=== PATIENT | female | born 1945 | race Caucasian/White ===

== ENCOUNTER 2018-06-20 03:05 | Inpatient (IN) | payer OTHER, MEDICARE ==
[2018-06-20 03:19] VITALS: BMI 24.0
[2018-06-20] MEDS ORDERED: SODIUM CHLORIDE 1,000 ML IV STA (03:23)
[2018-06-20] MEDS ORDERED: ACETAMINOPHEN 1000 MG/100 ML VIAL (NON FORMULARY) IVPB ONE (03:23)
[2018-06-20] MEDS ORDERED: ACETAMINOPHEN INJECTION 100 ML IVPB ONE (03:24)
[2018-06-20] MEDS ORDERED: PIPERACILLIN/TAZOB 3.375 GM 3.375 GM in DEXTROSE 5%-WATER - 50 ML IVPB ONE (03:30)
[2018-06-20] MEDS ORDERED: VANCOMYCIN 1,000 MG in DEXTROSE 5%-WATER - 250 ML IVPB ONE (03:30)
--- NOTE | 2018-06-20 03:33 | PDOC ---
History of Present Illness - General History Source: Patient Exam Limitations: No Limitations - History of Present Illness Initial Comments: 06/20/18 03:56 The patient is a 73 year old male, with a significant PMH of dysphagia, acute respiratory infection, dementia, Type 2 diabetes and hypothyroidism who presents to the emergency department with vomiting. According to jail papers, patient vomited 3 times accompanied with shakes and elevated BP of 195/ 94. Per jail paper, patient's oxygen saturation was 77 and o2 was given changing oxygen saturation to 94. As per jail records patient is DNR. The patient denies chest pain, shortness of breath, headache and dizziness. Denies fever,diarrhea and constipation. Denies dysuria, frequency, urgency and hematuria. Allergies: clindamycin, penicillin Past surgical history: Fistula temp colostomy closure, appendectomy, cholecystectomy, orif right ankle Social history: None reported PCP: None reported Documentation prepared by Cathi Aguilar, acting as director global medical affairs for Hi Romero MD. <Cathi Aguilar - Last Filed: 06/20/18 03:56> - General History Source: Patient Exam Limitations: Clinical Condition <Hi Romero - Last Filed: 06/20/18 04:59> - General Chief Complaint: Nausea/Vomiting Stated Complaint: VOMITING Time Seen by Provider: 06/20/18 03:23 Past History <Cathi Aguilar - Last Filed: 06/20/18 03:56> - Past Medical History Anemia: No Asthma: No Cancer: No Cardiac Disorders: No CVA: No COPD: No CHF: No Dementia: No Diabetes: Yes GI Disorders: No Disorders: Yes (kidney stones) HTN: Yes Hypercholesterolemia: No Liver Disease: No Seizures: No Thyroid Disease: Yes (hypothroid) - Surgical History Abdominal Surgery: Yes (fistula temp colostomy,closure) Appendectomy: Yes Cardiac Surgery: No Cholecystectomy: Yes Lung Surgery: No Neurologic Surgery: No Orthopedic Surgery: Yes (orif right ankle) - Immunization History Td Vaccination: No Immunization Up to Date: Yes - Suicide/Smoking/Psychosocial Hx Smoking Status: No Smoking History: Never smoked Have you smoked in the past 12 months: No Number of Cigarettes Smoked Daily: 0 Information on smoking cessation initiated: No Hx Alcohol Use: No Drug/Substance Use Hx: No Substance Use Type: None Hx Substance Use Treatment: No <Hi Romero - Last Filed: 06/20/18 04:59> - Past Medical History Allergies/Adverse Reactions: Allergies Allergy/AdvReac Type Severity Reaction Status Date / Time clindamycin Allergy Severe Rash Verified 06/20/18 03:17 Penicillins Allergy Mild Rash Verified 06/20/18 03:17 Home Medications: Ambulatory Orders Acetaminophen [Tylenol .Regular Strength -] 650 mg PO Q6H PRN 10/08/14 Bacitracin - [Bacitracin Topical Ointment -] 1 applic TP BID 10/08/14 Insulin Regular, Human [Humulin R -] 0 units SQ ACHS 10/08/14 Levothyroxine [Synthroid -] 100 mcg PO DAILY 10/08/14 Lisinopril [Prinivil -] 40 mg PO DAILY 10/08/14 Sitagliptin Phosphate [Januvia] 100 mg PO DAILY 10/08/14 metFORMIN XR [Glucophage Xr -] 750 mg PO BID 10/08/14 Review of Systems - Review of Systems Able to Perform ROS?: Yes Comments:: 06/20/18 03:59 CONSTITUTIONAL: Present:chills Absent: fever, no fatigue EYES: Absent: visual changes ENT: Absent: ear pain, no sore throat CARDIOVASCULAR: Absent: chest pain, no palpitations RESPIRATORY: Absent: cough, no SOB GI: Present: Nausea, vomiting Absent: abdominal pain, no constipation, no diarrhea GENITOURINARY: Absent: dysuria, no frequency, no hematuria MUSKULOSKELETAL: Absent: back pain, no arthralgia, no myalgia SKIN: Absent: rash NEURO: Absent: headache <Cathi Aguilar - Last Filed: 06/20/18 03:56> *Physical Exam - Vital Signs Last Vital Signs Temp Pulse Resp BP Pulse Ox 102.7 F H 105 H 16 126/102 89 L 06/20/18 03:17 06/20/18 03:17 06/20/18 03:17 06/20/18 03:17 06/20/18 03:17 - Physical Exam Comments: 06/20/18 03:58 GENERAL: +Appears confused. Well developed, well nourished. HEENT: Normocephalic, atraumatic. PERRLA, EOMI. No conjunctival pallor. Sclera are non- icteric. Moist mucous membranes. Oropharynx is clear. NECK: Supple. Full ROM. No JVD. Carotid pulses 2+ and symmetric, without bruits. No thyromegaly. No lymphadenopathy. CARDIOVASCULAR: +Tachycardia Regular rate and rhythm. No murmurs, rubs, or gallops. Distal pulses are 2+ and symmetric. PULMONARY: +Mild respiratory distress.+Decreased breath sound bilaterally. + Supraclavicular retraction No wheezing, rales or rhonchi. ABDOMINAL: +Distended. Soft. Non-tender. No rebound or guarding. No organomegaly. Normoactive bowel sounds. MUSCULOSKELETAL Normal range of motion at all joints. No bony deformities or tenderness. No CVA tenderness. EXTREMITIES: No cyanosis. No clubbing. No edema. No calf tenderness. SKIN: Warm and dry. Normal capillary refill. No rashes. No jaundice. NEUROLOGICAL: +No focal deficit PSYCHIATRIC: Cooperative. Good eye contact. Appropriate mood and affect. <Cathi Aguilar - Last Filed: 06/20/18 03:56> - Vital Signs Last Vital Signs Temp Pulse Resp BP Pulse Ox 102.7 F H 105 H 16 126/102 89 L 06/20/18 03:17 06/20/18 03:17 06/20/18 03:17 06/20/18 03:17 06/20/18 03:17 <Hi Romero - Last Filed: 06/20/18 04:59> ED Treatment Course - LABORATORY CBC & Chemistry Diagram: 06/20/18 03:36 06/20/18 03:36 - ADDITIONAL ORDERS Additional order review: Laboratory Results 06/20/18 03:36 VBG pH 7.45 H POC VBG pCO2 31.2 L POC VBG pO2 53.8 H Mixed VBG HCO3 21.6 06/20/18 03:36 RBC 5.02 MCV 86.6 MCHC 34.2 RDW 13.8 MPV 8.6 Neutrophils % 96.3 H D Lymphocytes % 2.1 L D Monocytes % 1.5 L Eosinophils % 0.0 D Basophils % 0.1 - Medications Given in the ED: ED Medications Discontinued Medications Generic Name Dose Route Start Last Admin Trade Name Freq PRN Reason Stop Dose Admin Acetaminophen 1,000 mg 06/20/18 03:23 06/20/18 03:33 Ofirmev Injection - IVPB 06/20/18 03:24 1,000 mg ONCE ONE Administration <Cathi Aguilar - Last Filed: 06/20/18 03:56> - LABORATORY CBC & Chemistry Diagram: 06/20/18 03:36 06/20/18 03:36 - RADIOLOGY Radiology Studies Ordered: Category Date Time Status CHEST X-RAY PORTABLE* [RAD] Stat Radiology 06/20/18 03:22 Ordered <Hi Romero - Last Filed: 06/20/18 04:59> Medical Decision Making - Medical Decision Making 06/20/18 04:58 Dr. Romero: The scribe's documentation has been prepared under my direction and personally reviewed by me in its entirery. I confirm that the note above accurately reflects all work, treatment, procedures, and medical decision making performed by me. Pt is DNR. Pt found to have a UTI. Will admit <Hi Romero - Last Filed: 06/20/18 04:59> *DC/Admit/Observation/Transfer - Attestations Scribe Attestion: 06/20/18 04:01 Documentation prepared by Cathi Aguilar, acting as director global medical affairs for Hi Romero MD. <Cathi Aguilar - Last Filed: 06/20/18 03:56> - Discharge Dispostion Decision to Admit order: Yes <Hi Romero - Last Filed: 06/20/18 04:59> Diagnosis at time of Disposition: Sepsis, UTI (lower urinary tract infection) - Discharge Dispostion Condition at time of disposition: Guarded
[2018-06-20] MEDS ORDERED: PIPERACILLIN/TAZOB 3.375 GM 3.375 GM/50 ML BAG IVPB ONE (03:43)
[2018-06-20 03:52] LABS: BASO % 0.1 % (0-2.0); HEMATOCRIT 43.5 % (32.4-45.2); HEMOGLOBIN 14.9 GM/dL (10.7-15.3); LYMPH % 2.1 % (8-40); MCH 29.6 pg (25.7-33.7); MCHC 34.2 g/dl (32.0-36.0); MEAN CELL VOLUME 86.6 fl (80-96); MEAN PLT VOLUME 8.6 fl (7.5-11.1); MONO % 1.5 % (3.8-10.2); NEUT % 96.3 % (42.8-82.8); PLATELET COUNT 152 K/MM3 (134-434); RBC 5.02 M/mm3 (3.60-5.2); RDW 13.8 % (11.6-15.6); VENOUS PC02 31.2 mmHg (38-52); VENOUS PH 7.45 (7.32-7.42)
[2018-06-20 03:53] LABS: VENOUS PO2 53.8 mmHg (28-48)
[2018-06-20 04:02] LABS: URINE APPEARANCE CLOUDY; URINE BILIRUBIN NEGATIVE (<2.0 mg/dL); URINE COLOR YELLOW; URINE GLUCOSE (UA) 2+ (NEGATIVE); URINE KETONE NEGATIVE (NEGATIVE); URINE NITRITE NEGATIVE (NEGATIVE); URINE UROBILINOGEN NEGATIVE mg/dL (0.2-1.0)
[2018-06-20 04:04] LABS: INR 1.27 (0.83-1.09); PROTHROMBIN TIME (PATIENT) 14.3 SEC (9.7-13.0)
[2018-06-20 04:07] LABS: ACTIVATED PTT 23.7 SECONDS (25.2-36.5)
[2018-06-20] MEDS ORDERED: VANCOMYCIN 1 GRAM (PRE-DOCKED) 1,000 MG/250 ML BAG IVPB ONE (04:08)
[2018-06-20 04:13] LABS: URINE LEUK ESTERASE 2+ (NEGATIVE); URINE PROTEIN 2+ (NEGATIVE)
[2018-06-20 04:14] LABS: ALBUMIN 2.9 g/dl (3.4-5.0); ANION GAP 13 MMOL/L (8-16); BILIRUBIN,TOTAL 1.2 mg/dL (0.2-1.0); BLOOD UREA NITROGEN 37 mg/dL (7-18); CALCIUM 8.6 mg/dL (8.5-10.1); CHLORIDE 104 mmol/L (98-107); CO2 23 mmol/L (21-32); CREATININE 1.5 mg/dL (0.55-1.02); POTASSIUM 3.9 mmol/L (3.5-5.1); SGOT/AST 29 U/L (15-37); SGPT/ALT 21 U/L (12-78); SODIUM 140 mmol/L (136-145); TOT PROT 6.9 g/dl (6.4-8.2)
[2018-06-20 04:15] LABS: ALK PHOS 93 U/L (45-117)
[2018-06-20 04:16] LABS: GLUCOSE,RANDOM 308 mg/dL (74-106)
[2018-06-20 04:20] LABS: EPI CELLS FEW /HPF (FEW); URINE BACTERIA MANY /hpf (NONE SEEN); URINE MUCUS RARE; YEAST MODERATE
[2018-06-20 04:30] LABS: PLATELET ESTIMATE ADEQUATE
[2018-06-20] MEDS ORDERED: ACETAMINOPHEN 325 MG TABLET (FP) PO PRN (06:00)
[2018-06-20] MEDS ORDERED: SODIUM CHLORIDE 1,000 ML IV SCH (06:00)
--- NOTE | 2018-06-20 06:08 | PN ---
Teaching Attending Note Name of Resident: Lanie Alexis ATTENDING PHYSICIAN STATEMENT I saw and evaluated the patient. I reviewed the resident's note and discussed the case with the resident. I agree with the resident's findings and plan as documented. SUBJECTIVE: Patient is a 73 year old woman, Detention resident with a significant PMH of dysphagia, acute respiratory infection, dementia, Type 2 diabetes and hypothyroidism who presents to the ER with vomiting. According to longterm papers, patient vomited 3 times accompanied with shakes and elevated BP of 195/ 94. Per longterm paper, patient's oxygen saturation was 77 and oxygen was then given and saturation paulino to 94. As per longterm records patient has DNR instructions. The patient is awake, but not answering questions or following commands. It is unclear if this is her baseline. OBJECTIVE: Alert Vital Signs Period Temp Pulse Resp BP Sys/[place] Pulse Ox Last 24 Hr 102.7 F 105 16 126/102 89 HEENT: No Jaundice, eye redness or discharge, PERRLA, Normocephalic, atraumatic. External ears are normal; unable to evaluate her hearing. No nasal discharge. Neck: Supple, nontender. No palpable adenopathy or thyromegaly. No JVD Chest: Good effort. Clear to auscultation and percussion. Heart: Regular. No S3, rub or murmur Abdomen: Not distended, soft, nontender and no HSM. No rebound or guarding. Normoactive bowel sounds. Ext: Peripheral pulses intact. No leg edema. Skin: Warm and dry. No petechiae, rash or ecchymosis. Neuro: Alert. Not answering questions or following commands. Home Medications Medication Instructions Recorded Acetaminophen [Tylenol .Regular 650 mg PO Q6H PRN 10/08/14 Strength -] Bacitracin - [Bacitracin Topical 1 applic TP BID 10/08/14 Ointment -] Insulin Regular, Human [Humulin R 0 units SQ ACHS 10/08/14 -] Levothyroxine [Synthroid -] 100 mcg PO DAILY 10/08/14 Lisinopril [Prinivil -] 40 mg PO DAILY 10/08/14 Sitagliptin Phosphate [Januvia] 100 mg PO DAILY 10/08/14 metFORMIN XR [Glucophage Xr -] 750 mg PO BID 10/08/14 Abnormal Lab Results 06/20/18 06/20/18 06/20/18 03:36 03:36 03:36 Neutrophils % 96.3 H D Lymphocytes % 2.1 L D Lymphocytes % (Manual) 3.0 L Monocytes % 1.5 L Monocytes % (Manual) 3 L PT with INR 14.30 H INR 1.27 H PTT (Actin FS) 23.7 L VBG pH 7.45 H POC VBG pCO2 31.2 L POC VBG pO2 53.8 H BUN Creatinine Random Glucose Lactic Acid Total Bilirubin Albumin Urine Protein Urine Glucose (UA) Urine Blood Ur Leukocyte Esterase 06/20/18 06/20/18 06/20/18 03:36 03:36 03:45 Neutrophils % Lymphocytes % Lymphocytes % (Manual) Monocytes % Monocytes % (Manual) PT with INR INR PTT (Actin FS) VBG pH POC VBG pCO2 POC VBG pO2 BUN 37 H Creatinine 1.5 H Random Glucose 308 H* Lactic Acid 4.0 H* Total Bilirubin 1.2 H Albumin 2.9 L Urine Protein 2+ H Urine Glucose (UA) 2+ H Urine Blood 3+ H Ur Leukocyte Esterase 2+ H ASSESSMENT AND PLAN: 1. Sepsis due to Healthcare-associated UTI and Pneumonia - In addition to evidence of UTI, she also has RML and RLL infiltrates on CXR as per my read. Multiple isolates of E.Coli in her urine in the past was resistant to levofloxacin. She is allergic to penicillin and clindamycin. Will treat her with dose-adjusted Vancomycin, Meropenem and Azithromycin, pending culture results. IV NS and trend lactic acid level. Followup with Detention staff to get a better picture of her baseline mental status. 2. Hypoalbuminemia - Possibly due to combined effects of malnutrition, proteinuria and inflammation associated with comorbid chronic conditions. Will ensure adequate dietary protein intake and also consult embedded software architect. 3. DM - For now, we will hold the home diabetes drugs and implement sliding scale insulin regimen. Provide comprehensive diabetes care with patient teaching and counseling about the importance of euglycemia, eye care and foot care. 4. DIOGO? - Vomiting, osmotic diuresis and poor intake likely led to dehydration. Will avoid nephrotoxic agents such as NSAIDS, aminoglycosides, contrast dyes and certain Alternative medicine products. Deescalate from vancomycin once cultures become available and check trough levels. 5. DVT prophylaxis - Heparin 5000u sq tid. 6. Advance directives - Full code
--- NOTE | 2018-06-20 06:12 | HP ---
CHIEF COMPLAINT:vomiting PCP: HISTORY OF PRESENT ILLNESS: Patient is a 73 year old female with past medical history of dysphagia, HTN, DM , Dementia, Hypothyroidism, and recurrent UTIs was brought in from the shelter by EMS due to vomiting. Patient is awake, but nonverbal, not answering questions and does not follow commands. As per the shelter papers, patient was noted to have 3 episodes of vomiting accompanied by chills. BP at that time was 195/94 and O2 sat was found to be 77% which improved to 94% with oxygen. Patient is DNR. Otherwise, no other symptoms were reported. ER course was notable for: (1)Temp 102.7 HR 105 (2)BUN 37, Cr 1.5, Glucose 308, Lactic acid 4.0 (3)UA- WBC 479, RBC 520, FAINA 2+ Glu 2+ Blood 3+ Leuk est 2+, many bacteria Recent Travel:denies any recent travel PAST MEDICAL HISTORY: Dysphagia HTN DM Dementia Hypothyroidism PAST SURGICAL HISTORY: Fistula temp colostomy closure Appendectomy Cholecystectomy ORIF R ankle Social History: Smoking:nonsmoker Alcohol:non EtOH drinker Drugs: denies illicit drug use Family History: Allergies clindamycin Allergy (Severe, Verified 06/20/18 03:17) Rash Penicillins Allergy (Mild, Verified 06/20/18 03:17) Rash HOME MEDICATIONS: Home Medications Medication Instructions Recorded Acetaminophen [Tylenol .Regular 650 mg PO Q6H PRN 10/08/14 Strength -] Bacitracin - [Bacitracin Topical 1 applic TP BID 10/08/14 Ointment -] Insulin Regular, Human [Humulin R 0 units SQ ACHS 10/08/14 -] Levothyroxine [Synthroid -] 100 mcg PO DAILY 10/08/14 Lisinopril [Prinivil -] 40 mg PO DAILY 10/08/14 Sitagliptin Phosphate [Januvia] 100 mg PO DAILY 10/08/14 metFORMIN XR [Glucophage Xr -] 750 mg PO BID 10/08/14 REVIEW OF SYSTEMS CONSTITUTIONAL: fever, chills Absent: diaphoresis, generalized weakness, malaise, loss of appetite, weight change HEENT: Absent: rhinorrhea, nasal congestion, throat pain, throat swelling, difficulty swallowing, mouth swelling, ear pain, eye pain, visual changes CARDIOVASCULAR: Absent: chest pain, syncope, palpitations, irregular heart rate, lightheadedness , peripheral edema RESPIRATORY: Absent: cough, shortness of breath, dyspnea with exertion, orthopnea, wheezing, stridor, hemoptysis GASTROINTESTINAL:vomiting Absent: abdominal pain, abdominal distension, nausea, diarrhea, constipation, melena, hematochezia GENITOURINARY: Absent: dysuria, frequency, urgency, hesitancy, hematuria, flank pain, genital pain MUSCULOSKELETAL: Absent: myalgia, arthralgia, joint swelling, back pain, neck pain SKIN: Absent: rash, itching, pallor HEMATOLOGIC/IMMUNOLOGIC: Absent: easy bleeding, easy bruising, lymphadenopathy, frequent infections ENDOCRINE: Absent: unexplained weight gain, unexplained weight loss, heat intolerance, cold intolerance NEUROLOGIC: Absent: headache, focal weakness or paresthesias, dizziness, unsteady gait, seizure, mental status changes, bladder or bowel incontinence PSYCHIATRIC: Absent: anxiety, depression, suicidal or homicidal ideation, hallucinations. PHYSICAL EXAMINATION Vital Signs - 24 hr 06/20/18 03:17 Temperature 102.7 F H Pulse Rate 105 H Respiratory 16 Rate Blood Pressure 126/102 O2 Sat by Pulse 89 L Oximetry (%) GENERAL: Awake, nonverbal, not following commands, on simple face mask HEAD: Normal with no signs of trauma. EYES: Pupils equal, round and reactive to light, extraocular movements intact, sclera anicteric, conjunctiva clear. No lid lag. EARS, NOSE, THROAT: Ears normal, nares patent, oropharynx clear without exudates. Moist mucous membranes. NECK: Normal range of motion, supple without lymphadenopathy, JVD, or masses. LUNGS: +rhonchi on R lung, no accessory muscle use HEART: Regular rate and rhythm, normal S1 and S2 without murmur, rub or gallop. ABDOMEN: Soft, nontender, not distended, normoactive bowel sounds. MUSCULOSKELETAL: Normal range of motion at all joints. UPPER EXTREMITIES: 2+ pulses, warm, well-perfused. No cyanosis. No clubbing. No peripheral edema. LOWER EXTREMITIES: 2+ pulses, warm, well-perfused. No calf tenderness. No peripheral edema. SKIN: Warm, dry, normal turgor, no rashes or lesions. Laboratory Results - last 24 hr 06/20/18 06/20/18 06/20/18 03:36 03:36 03:36 WBC 7.0 RBC 5.02 Hgb 14.9 Hct 43.5 MCV 86.6 MCH 29.6 MCHC 34.2 RDW 13.8 Plt Count 152 MPV 8.6 Absolute Neuts (auto) 6.7 Total Counted 100 Neutrophils % 96.3 H D Neutrophils % (Manual) 78.0 Band Neutrophils % 16.0 Lymphocytes % 2.1 L D Lymphocytes % (Manual) 3.0 L Monocytes % 1.5 L Monocytes % (Manual) 3 L Eosinophils % 0.0 D Basophils % 0.1 Nucleated RBC % 0 Platelet Estimate Adequate Platelet Comment No clotting detected PT with INR 14.30 H INR 1.27 H PTT (Actin FS) 23.7 L VBG pH 7.45 H POC VBG pCO2 31.2 L POC VBG pO2 53.8 H Mixed VBG HCO3 21.6 Sodium Potassium Chloride Carbon Dioxide Anion Gap BUN Creatinine Creat Clearance w eGFR Random Glucose Lactic Acid Calcium Total Bilirubin AST ALT Alkaline Phosphatase Troponin I Total Protein Albumin Lipase Urine Color Urine Appearance Urine pH Ur Specific [place] Urine Protein Urine Glucose (UA) Urine Ketones Urine Blood Urine Nitrite Urine Bilirubin Urine Urobilinogen Ur Leukocyte Esterase Urine WBC (Auto) Urine RBC (Auto) Ur Epithelial Cells Urine Bacteria Urine Mucus Urine Yeast 06/20/18 06/20/18 06/20/18 03:36 03:36 03:36 WBC RBC Hgb Hct MCV MCH MCHC RDW Plt Count MPV Absolute Neuts (auto) Total Counted Neutrophils % Neutrophils % (Manual) Band Neutrophils % Lymphocytes % Lymphocytes % (Manual) Monocytes % Monocytes % (Manual) Eosinophils % Basophils % Nucleated RBC % Platelet Estimate Platelet Comment PT with INR INR PTT (Actin FS) VBG pH POC VBG pCO2 POC VBG pO2 Mixed VBG HCO3 Sodium 140 Potassium 3.9 Chloride 104 Carbon Dioxide 23 Anion Gap 13 BUN 37 H Creatinine 1.5 H Creat Clearance w eGFR 33.85 Random Glucose 308 H* Lactic Acid 4.0 H* Calcium 8.6 Total Bilirubin 1.2 H AST 29 ALT 21 Alkaline Phosphatase 93 Troponin I 0.03 Total Protein 6.9 Albumin 2.9 L Lipase Urine Color Urine Appearance Urine pH Ur Specific [place] Urine Protein Urine Glucose (UA) Urine Ketones Urine Blood Urine Nitrite Urine Bilirubin Urine Urobilinogen Ur Leukocyte Esterase Urine WBC (Auto) Urine RBC (Auto) Ur Epithelial Cells Urine Bacteria Urine Mucus Urine Yeast 06/20/18 06/20/18 03:45 03:49 WBC RBC Hgb Hct MCV MCH MCHC RDW Plt Count MPV Absolute Neuts (auto) Total Counted Neutrophils % Neutrophils % (Manual) Band Neutrophils % Lymphocytes % Lymphocytes % (Manual) Monocytes % Monocytes % (Manual) Eosinophils % Basophils % Nucleated RBC % Platelet Estimate Platelet Comment PT with INR INR PTT (Actin FS) VBG pH POC VBG pCO2 POC VBG pO2 Mixed VBG HCO3 Sodium Potassium Chloride Carbon Dioxide Anion Gap BUN Creatinine Creat Clearance w eGFR Random Glucose Lactic Acid Calcium Total Bilirubin AST ALT Alkaline Phosphatase Troponin I Total Protein Albumin Lipase 79 Urine Color Yellow Urine Appearance Cloudy Urine pH 7.0 D Ur Specific [place] 1.012 Urine Protein 2+ H Urine Glucose (UA) 2+ H Urine Ketones Negative Urine Blood 3+ H Urine Nitrite Negative Urine Bilirubin Negative Urine Urobilinogen Negative Ur Leukocyte Esterase 2+ H Urine WBC (Auto) 479 Urine RBC (Auto) 520 Ur Epithelial Cells Few Urine Bacteria Many Urine Mucus Rare Urine Yeast Moderate CBC, BMP 06/20/18 03:36 06/20/18 03:36 ASSESSMENT/PLAN: Patient is a 73 year old female with past medical history of dysphagia, HTN, DM , Dementia, Hypothyroidism, and recurrent UTIs was brought in from the shelter by EMS due to vomiting. #Sepsis: secondary to UTI and HCAP -UA- WBC 479, RBC 520, FAINA 2+ Glu 2+ Blood 3+ Leuk est 2+, many bacteria -CXR: infiltrates on right middle and lower lobes -urine cx and blood cx pending -Trend lactic acid -previous urine cx showed E.coli resistant to Levaquin -Patient has allergy to clindamycin and penicillins -Meropenem, Vancomycin, and Azithromycin started. -ID consult - Dr. Rosas -Pulmo consult - Dr. Rosas #DIOGO on ?CKD -BUN 37 Cr 1.5 -May be 2/2 DHN from vomiting -IV fluids started. -Echocardiogram ordered. -Avoid all nephrotoxic drugs such as NSAIDs, aminoglycosides, contrast dyes -Nephro consult - Dr. Hastings #DM: glu -308 -hold all home medications -Insulin sliding scale started -monitor BGM ACHS #Hypertension: chronic -hold Lisinopril -monitor BP -consider Amlodipine if BP remains elevated. #Hypothyroidism: chronic -continue Synthroid #FEN -IV NS (0.9%) at 100ml/hr -electrolytes wnl, routine bmp monitoring -diabetic/sodium restricted diet #Prophylaxis -Heparin 5000 units sq tid #Disposition -admit to med-surg -DNR Visit type - Emergency Visit Emergency Visit: Yes ED Registration Date: 06/20/18 Care time: The patient presented to the Emergency Department on the above date and was hospitalized for further evaluation of their emergent condition. - New Patient This patient is new to me today: Yes Date on this admission: 06/20/18 - Critical Care Critical Care patient: No Hospitalist Screening - Colonoscopy Questionnaire Colonoscopy Questionnaire: Colonoscopy Questionnaire - Patient: 50 - 75 years old and never had a screening colonoscopy: Unknown History of colon or rectal polyps, or CA: Unknown History of IBD, Crohn's disease or UC: Unknown History of abdominal radiation therapy as a child: Unknown - Relative: 1 with colon or rectal CA, or polyps at age 60 or younger: Unknown Colon or rectal CA diagnosed at age 45 or younger: Unknown Multiple relatives with colon or rectal CA: Unknown - Outcome: Screening Result: Negative Screen
[2018-06-20] MEDS: AZITHROMYCIN IVPB 500 MG in DEXTROSE 5%-WATER - 250 ML IVPB SCH ×2 (06:15→09:32)
[2018-06-20] MEDS ORDERED: VANCOMYCIN 1,000 MG in DEXTROSE 5%-WATER - 250 ML IVPB SCH ×2 (06:15→10:00)
[2018-06-20] MEDS ORDERED: AZITHROMYCIN IVPB 250 ML IVPB ONE (06:28)
[2018-06-20] MEDS ORDERED: INSULIN (NOVOLOG) ASPART 100 UNITS/ML 10ML VIAL ONE ×2 (06:44→11:23)
[2018-06-20] MEDS ORDERED: MEROPENEM 1 GM in DEXTROSE 5%-WATER 100 ML IVPB SCH (06:45)
[2018-06-20] MEDS: HEPARIN NA (PORCINE) 5,000 UNITS/ML 1ML VIAL SQ SCH ×2 (06:45→16:05)
[2018-06-20] MEDS: INSULIN SLIDING SCALE (NOVOLOG) 1 VIAL SQ SCH ×3 (06:50→17:47)
[2018-06-20] MEDS ORDERED: HEPARIN NA (PORCINE) 5,000 UNITS/ML 1ML VIAL ONE (06:56)
[2018-06-20] MEDS ORDERED: LEVOTHYROXINE NA 100 MCG TABLET (FP) PO SCH (07:00)
--- NOTE | 2018-06-20 09:54 | PN ---
Physical Exam: SUBJECTIVE: Patient seen and examined at bedside in the ED. Admitted overnight. pt non verbal but responsive to stimuli OBJECTIVE: Vital Signs Period Temp Pulse Resp BP Sys/Enamorado Pulse Ox Last 24 Hr 98.0 F-102.7 F 76-105 16-18 79-126/38-102 89-97 GENERAL: Awake, nonverbal but responsive to stimuli , not following commands, on 2L o2 NC HEAD: Normal with no signs of trauma. EYES: PERRL sclera anicteric, conjunctiva clear. No lid lag. EARS, NOSE, THROAT: nares patent, oropharynx clear without exudates. dry mucous membranes. NECK: Normal range of motion, supple without lymphadenopathy, JVD, or masses. LUNGS: +rhonchi b/l R >L , no accessory muscle use HEART: RRR, normal S1 and S2 without murmur, rub or gallop. ABDOMEN: Soft, nontender, not distended, normoactive bowel sounds. MUSCULOSKELETAL: Normal range of motion at all joints. UPPER EXTREMITIES: 2+ pulses, warm, well-perfused. No cyanosis. No clubbing. No peripheral edema. LOWER EXTREMITIES: 2+ pulses, warm, well-perfused. No calf tenderness. No peripheral edema. SKIN: Warm, dry, normal turgor, no rashes or lesions. Laboratory Results - last 24 hr 06/20/18 06/20/18 06/20/18 03:36 03:36 03:36 WBC 7.0 RBC 5.02 Hgb 14.9 Hct 43.5 MCV 86.6 MCH 29.6 MCHC 34.2 RDW 13.8 Plt Count 152 MPV 8.6 Absolute Neuts (auto) 6.7 Total Counted 100 Neutrophils % 96.3 H D Neutrophils % (Manual) 78.0 Band Neutrophils % 16.0 Lymphocytes % 2.1 L D Lymphocytes % (Manual) 3.0 L Monocytes % 1.5 L Monocytes % (Manual) 3 L Eosinophils % 0.0 D Basophils % 0.1 Nucleated RBC % 0 Platelet Estimate Adequate Platelet Comment No clotting detected PT with INR 14.30 H INR 1.27 H PTT (Actin FS) 23.7 L VBG pH 7.45 H POC VBG pCO2 31.2 L POC VBG pO2 53.8 H Mixed VBG HCO3 21.6 Sodium Potassium Chloride Carbon Dioxide Anion Gap BUN Creatinine Creat Clearance w eGFR POC Glucometer Random Glucose Lactic Acid Calcium Total Bilirubin AST ALT Alkaline Phosphatase Troponin I Total Protein Albumin Lipase Urine Color Urine Appearance Urine pH Ur Specific [place] Urine Protein Urine Glucose (UA) Urine Ketones Urine Blood Urine Nitrite Urine Bilirubin Urine Urobilinogen Ur Leukocyte Esterase Urine WBC (Auto) Urine RBC (Auto) Ur Epithelial Cells Urine Bacteria Urine Mucus Urine Yeast 06/20/18 06/20/18 06/20/18 03:36 03:36 03:36 WBC RBC Hgb Hct MCV MCH MCHC RDW Plt Count MPV Absolute Neuts (auto) Total Counted Neutrophils % Neutrophils % (Manual) Band Neutrophils % Lymphocytes % Lymphocytes % (Manual) Monocytes % Monocytes % (Manual) Eosinophils % Basophils % Nucleated RBC % Platelet Estimate Platelet Comment PT with INR INR PTT (Actin FS) VBG pH POC VBG pCO2 POC VBG pO2 Mixed VBG HCO3 Sodium 140 Potassium 3.9 Chloride 104 Carbon Dioxide 23 Anion Gap 13 BUN 37 H Creatinine 1.5 H Creat Clearance w eGFR 33.85 POC Glucometer Random Glucose 308 H* Lactic Acid 4.0 H* Calcium 8.6 Total Bilirubin 1.2 H AST 29 ALT 21 Alkaline Phosphatase 93 Troponin I 0.03 Total Protein 6.9 Albumin 2.9 L Lipase Urine Color Urine Appearance Urine pH Ur Specific [place] Urine Protein Urine Glucose (UA) Urine Ketones Urine Blood Urine Nitrite Urine Bilirubin Urine Urobilinogen Ur Leukocyte Esterase Urine WBC (Auto) Urine RBC (Auto) Ur Epithelial Cells Urine Bacteria Urine Mucus Urine Yeast 06/20/18 06/20/18 06/20/18 03:45 03:49 06:38 WBC RBC Hgb Hct MCV MCH MCHC RDW Plt Count MPV Absolute Neuts (auto) Total Counted Neutrophils % Neutrophils % (Manual) Band Neutrophils % Lymphocytes % Lymphocytes % (Manual) Monocytes % Monocytes % (Manual) Eosinophils % Basophils % Nucleated RBC % Platelet Estimate Platelet Comment PT with INR INR PTT (Actin FS) VBG pH POC VBG pCO2 POC VBG pO2 Mixed VBG HCO3 Sodium Potassium Chloride Carbon Dioxide Anion Gap BUN Creatinine Creat Clearance w eGFR POC Glucometer [phone] Random Glucose Lactic Acid Calcium Total Bilirubin AST ALT Alkaline Phosphatase Troponin I Total Protein Albumin Lipase 79 Urine Color Yellow Urine Appearance Cloudy Urine pH 7.0 D Ur Specific [place] 1.012 Urine Protein 2+ H Urine Glucose (UA) 2+ H Urine Ketones Negative Urine Blood 3+ H Urine Nitrite Negative Urine Bilirubin Negative Urine Urobilinogen Negative Ur Leukocyte Esterase 2+ H Urine WBC (Auto) 479 Urine RBC (Auto) 520 Ur Epithelial Cells Few Urine Bacteria Many Urine Mucus Rare Urine Yeast Moderate 06/20/18 06/20/18 06:45 08:28 WBC RBC Hgb Hct MCV MCH MCHC RDW Plt Count MPV Absolute Neuts (auto) Total Counted Neutrophils % Neutrophils % (Manual) Band Neutrophils % Lymphocytes % Lymphocytes % (Manual) Monocytes % Monocytes % (Manual) Eosinophils % Basophils % Nucleated RBC % Platelet Estimate Platelet Comment PT with INR INR PTT (Actin FS) VBG pH POC VBG pCO2 POC VBG pO2 Mixed VBG HCO3 Sodium Potassium Chloride Carbon Dioxide Anion Gap BUN Creatinine Creat Clearance w eGFR POC Glucometer [phone] Random Glucose Lactic Acid 3.1 H* Calcium Total Bilirubin AST ALT Alkaline Phosphatase Troponin I Total Protein Albumin Lipase Urine Color Urine Appearance Urine pH Ur Specific [place] Urine Protein Urine Glucose (UA) Urine Ketones Urine Blood Urine Nitrite Urine Bilirubin Urine Urobilinogen Ur Leukocyte Esterase Urine WBC (Auto) Urine RBC (Auto) Ur Epithelial Cells Urine Bacteria Urine Mucus Urine Yeast Active Medications Generic Name Dose Route Start Last Admin Trade Name Freq PRN Reason Stop Dose Admin Acetaminophen 650 mg 06/20/18 06:00 Tylenol - PO Q6H PRN PAIN Bacitracin 1 applic 06/20/18 10:00 06/20/18 09:32 Bacitracin - TP 1 applic BID KUMAR Administration Chlorhexidine Gluconate 1 applic 06/20/18 22:00 Hibiclens For Decolonization - TP HS KUMAR Heparin Sodium (Porcine) 5,000 unit 06/20/18 06:30 06/20/18 06:45 Heparin - SQ 5,000 unit TID KUMAR Administration Azithromycin 500 mg/ Dextrose 250 mls @ 250 mls/hr 06/20/18 06:01 06/20/18 09 :32 IVPB Not Given DAILY KUMAR Meropenem 1 gm/ Dextrose 100 mls @ 200 mls/hr 06/20/18 06:00 IVPB Q8H-IV KUMAR Sodium Chloride 1,000 mls @ 100 mls/hr 06/20/18 06:00 06/20/18 06:40 Normal Saline - IV 100 mls/hr ASDIR KUMAR Administration Vancomycin HCl 1,000 mg/ 250 mls @ 166.667 mls/hr 06/20/18 10:00 Dextrose IVPB DAILY KUMAR Protocol Meropenem 1 gm/ Dextrose 100 mls @ 200 mls/hr 06/20/18 06:45 06/20/18 07:00 IVPB 06/20/18 15:14 200 mls/hr Q8H [facility] Administration Insulin Aspart 1 vial 06/20/18 07:00 06/20/18 06:50 Novolog Vial Sliding Scale - SQ 10 unit ACHS [facility] Administration Protocol Levothyroxine Sodium 100 mcg 06/20/18 07:00 06/20/18 07:56 Synthroid - PO Not Given DAILY@0700 [facility] Mupirocin 1 applic 06/20/18 10:00 Bactroban Ointment (For Decolonization) - NS 06/25/18 09:59 BID [facility] ASSESSMENT/PLAN: Patient is a 73 year old female with past medical history of dysphagia, HTN, DM , Dementia, Hypothyroidism, and recurrent UTIs was brought in from the retirement by EMS due to vomiting and hypoxia #Severe Sepsis vs septic shock 2/2 UTI vs possible HCAP/aspiration PNA - no clear pneumonia ,likely UTI as source of sepsis. BPs have been 80/40s MAP 55-59 w/ trendelenberg. received 1 L NS with minimal response at this time. on 2L O2 NC Sat 97% HR 80s. extremities warm -UA- WBC 479, RBC 520, FAINA 2+ Glu 2+ Blood 3+ Leuk est 2+, many bacteria -CXR: infiltrates on right middle and lower lobes -f/u urine cx and blood cx -Trend lactic acid 4...3.1...3 -trop neg x2 -TSH nl -previous urine cx showed E.coli resistant to Levaquin -Patient has allergy to clindamycin -history of pen allergy has tolerated cephalosporins in the past -ID consult - Dr. Rosas -Pulmo consult - Dr. Rosas -received vanco/meropenem in ED -c/w cefepime and Azithromycin #Acute hypoxic respiratory distress- saturating 97% on 2L. was noted to be in 60% on RA at SNF. likley2/2 PNA and possible developing congestion. slightly tachypnic may be exacerbated by position. -c/w supportive O2 NC -monitor lungs -avoid overhydration #DIOGO on ?CKD 2/2 sepsis -BUN 37 Cr 1.5 -May be 2/2 DHN from vomiting -IV fluids started. -Echocardiogram ordered. -Avoid all nephrotoxic drugs such as NSAIDs, aminoglycosides, contrast dyes -Nephro consult - Dr. Hastings #DM: glu -308 -hold all home medications -Insulin sliding scale started -monitor BGM ACHS #Hypertension: chronic -hold Lisinopril -monitor BP -consider Amlodipine if BP remains elevated. #Hypothyroidism: chronic -continue Synthroid #FEN -IV NS (0.9%) at 100ml/hr -electrolytes wnl, routine bmp monitoring -diabetic/sodium restricted diet #Prophylaxis -Heparin 5000 units sq tid GOC: -We contacted Merle Cintrony power of deputy attorney general ([phone] home [phone] cell ) and Twila Pace (pt's health care decision maker; daughter? sister? , , ) about pt's current status and goals of care. Family reports that pt has baseline poor quality of life due to her advanced Alzheimer's dementia. She reports the pt has already been made a DNR at the nursing facility and, after discussing with her family, wants to make the pt DNI. She also does not wish to have any heroic interventions and would NOT want a central line and would NOT want any pressor support if the need arises. Twila and her family are okay with fluids and antibiotics and would like palliative consult regarding hospice care. -We obtained pt chart from [facility] which confirms comfort care measures -(last documented admission in 2013 and was noted to have dementia) #Disposition -medsurg - In lieu of above discussion would NOT transfer to ICU - health care proxy contacted who confirmed DNR/DNI, no aggressive measures including central line and pressors critical care time 40min Visit type - Emergency Visit Emergency Visit: Yes ED Registration Date: 06/20/18 Care time: The patient presented to the Emergency Department on the above date and was hospitalized for further evaluation of their emergent condition. - New Patient This patient is new to me today: Yes Date on this admission: 06/20/18 - Critical Care Critical Care patient: No
[2018-06-20] MEDS ORDERED: MUPIROCIN 2% TOPICAL OINTMENT FOR DECOLONIZATION NS SCH (10:00)
[2018-06-20] MEDS ORDERED: BACITRACIN 15 GM TUBE TOPICAL OINTMENT TP SCH (10:00)
--- NOTE | 2018-06-20 11:09 | PN ---
Progress Note (short form) - Note Progress Note: ICU Resident Consult HPI: 73yo F with history of Alzheimer's dementia and CHF who presents from her long-term after vomiting. Upon admission pt was minimally verbal and responsive and was found to have severe sepsis 2/2 to UTI process. More significantly, pt was found to be hypotensive with MAP of 59 and was placed in Trendelenburg positioning with IVF at the bedside. PE: VS: A/P Severe sepsis 2/2 to UTI R/o shock Lactic acidosis Alzheimer's Dementia Congestive Heart Failure ? DIOGO Neuro: Pt minimally responsive however seems to be at baseline Resp: Maintain SpO2 90% Currently on 2LNC CXR showing no infilitrative process; hilar fullness noted w/o any blunting of costophrenic angles Cardiac: BP 90/42; minimally fluid responsive at this point --Continue IVF resuscitation Renal: Endocrine: BGM for glycemic control ISS Hold Metformin Discussed with Twila Pace (pt's health care decision maker; daughter) about pt 's current status and goals of care. Family reports that pt has baseline poor quality of life due to her advanced Alzheimer's dementia. She reports the pt has already been made a DNR at the nursing facility and, after discussing with her family, wants to make the pt DNI. She also does not wish to have any heroic interventions and would NOT want a central line and would NOT want any pressor support if the need arises. Twila and her family are okay with fluids and antibiotics and would like palliative consult regarding hospice care.
--- NOTE | 2018-06-20 11:22 | CONSULT ---
Consult - text type - Consultation Consultation Note: ICU Resident Consult HPI: 73yo F with history of Alzheimer's dementia and CHF, HTN, hypothyroidism, NIDDM who presents from her [facility] after vomiting (reportedly NB/NB) with chills. Upon admission pt was minimally verbal and responsive so HPI is obtained per chart. It was reported that pt was found to originally hypoxic at the fdc to 77%, however quickly improved to 94% with nasal cannula oxygen. In ER, pt was found to have severe sepsis 2/2 to UTI process confirmed by UA. More significantly, pt was found to be hypotensive with MAP of 59 and was placed in Trendelenburg positioning with IVF at the bedside alongside of a lactic acidosis to 4.0. PE: Vital Signs 06/20/18 10:34 Temperature 98.4 F Pulse Rate [ 74 Left Apical] Respiratory 16 Rate Blood Pressure 94/52 [Left Arm] O2 Sat by Pulse 95 Oximetry (%) Gen: Minimally responsive in trendelenburg positioning, awake, HEENT: NELLY, no posterior oropharynx exudates or erythema, dry mucosa NECK: No JVD, soft RESP: Poor inspiratory effort, no overt wheezing or rales, on 2LNC SpO2 98% CARDIAC: RRR, 2/6 systolic murmur heard best at the apex without movement to the axilla ABD: Soft, ND, no facial grimmacing with palpations, hypoactive BS, no guarding , no hepatomegaly EXT: 2+ DP pulses, warm, cap refill <2sec, no edema SKIN: No rashes, no skin breakdown noted A/P Severe sepsis 2/2 to UTI R/o shock Lactic acidosis Alzheimer's Dementia Congestive Heart Failure DIOGO DM Hypothyroidism Neuro: Pt minimally responsive however may be at baseline given advanced dementia Resp: Maintain SpO2 95% Currently on 2LNC CXR showing no infilitrative process; hilar fullness noted w/o any blunting of costophrenic angles Cardiac: BP 94/52; minimally fluid responsive at this point --Continue IVF resuscitation Hold Lisinopril Renal: 0.8-0.9 baseline Most likely prerenal due to sepsis process Monitor urine output - 0.5cc/kg/hr Maintain jimenez for I&O's ID: Blood cultures and urine culture collected; f/u Continue Meropenem --Previous cultures with mostly E. Coli with various resistances --Vanco trough before 4th dose ID recs appreciated Endocrine: BGM for glycemic control ISS Hold Metformin Continue Synthroid 100mcg qDaily FEN: Fluids: Continue NS@100cc/hr; bolus if needed Electrolytes: Nutrition: NPO until hemodynamics stabilize; medications okay if pt tolerates PPX: DVT - Heparin Sq GOC: Discussed with Twila Pace (pt's health care decision maker; daughter) about pt 's current status and goals of care. Family reports that pt has baseline poor quality of life due to her advanced Alzheimer's dementia. She reports the pt has already been made a DNR at the nursing facility and, after discussing with her family, wants to make the pt DNI. She also does not wish to have any heroic interventions and would NOT want a central line and would NOT want any pressor support if the need arises. Twila and her family are okay with fluids and antibiotics and would like palliative consult regarding hospice care. Dispo: In lieu of above discussion would NOT transfer to ICU Discussed with primary team and Dr. Remigio Schwartz, DO - IM PGY-2
--- NOTE | 2018-06-20 12:28 | PN ---
Progress Note (short form) - Note Progress Note: ID consult dictated imp/reccd sepsis fever/vomiting at nh/pyuria/hypotension lactic acidosis improved with IVF and empiric antibiotics d/w icu- advanced directives- dnr/dni- no pressors chart reviewed she is currently alert and in NAD history of pen allergy has tolerated cephalosporins in the past no history of MDRO received vanco/meropenem in ED no clear pneumonia suspect UTI as source of sepsis plan cefepime f/u cultures Problem List - Problems (1) Sepsis Code(s): A41.9 - SEPSIS, UNSPECIFIED ORGANISM (2) UTI (lower urinary tract infection) Code(s): N39.0 - URINARY TRACT INFECTION, SITE NOT SPECIFIED (3) Penicillin allergy Code(s): Z88.0 - ALLERGY STATUS TO PENICILLIN
[2018-06-20] MEDS: MEROPENEM 1 GM in DEXTROSE 5%-WATER 100 ML IVPB SCH ×2 (13:11→13:12)
--- NOTE | 2018-06-20 13:11 | CONS ---
DATE OF CONSULTATION: DATE OF DICTATION: 06/20/2018 INFECTIOUS DISEASE CONSULTATION HISTORY OF PRESENT ILLNESS: This is a 73-year-old woman with history of dementia admitted from the [facility]. She was sent to the ER after she had 3 episodes of vomiting at the [facility] followed by chills and hypoxia. In the emergency room, she was noted to be febrile with a temperature of 102.7. She was hypotensive and had an elevated lactic acid. She was given vancomycin and meropenem in the ER, treated with IV fluids. She is currently resting comfortably. Her blood pressure is improved, systolic is over 100. She is on nasal cannula at 2 L. She is awake. She is responsive. She says hello, but she does not answer questions. She denies any complaints. PAST MEDICAL HISTORY: Notable for a history of dysphagia, dementia, hypertension, diabetes, chronic low back pain, hypothyroidism, lumbar spinal stenosis. SURGICAL HISTORY: Notable for appendectomy, cholecystectomy, right ankle fracture. SOCIAL HISTORY: She resides at the [facility]. She is single. She has no children. Nonsmoker. No history of substance use. ALLERGIES: SHE IS ALLERGIC TO CLINDAMYCIN AND PENICILLIN. Review of her prior admissions, her PENICILLIN ALLERGY was noted to be in the distant past, and she was treated successfully with cephalosporins without any reaction. MEDICATIONS: At the [facility] include insulin, levothyroxine, lisinopril, Januvia, Glucophage. REVIEW OF SYSTEMS: Notable for the vomiting without abdominal pain, fevers, and chills. She has no chest pain. She has no cough. PHYSICAL EXAMINATION: Vital Signs: She is currently afebrile, T-max was 102.7, pulse of 82, blood pressure is 102/50. She is saturating 92% on 2 L. General: As mentioned, she is in no distress. She is alert. HEENT: She is normocephalic. Her eyes are anicteric. Neck: Supple. Lungs: Clear to auscultation. Heart: Regular rate and rhythm. Abdomen: Soft, nontender. Extremities: Without edema. LABORATORIES: Notable for a white count of 7,000, hemoglobin 14.9, platelets 152. Her BUN is 37, creatinine is 1.5 with a glucose of 308. LFTs are normal. Lactic acid on admission was 4, repeat was 3.1. Her urinalysis has 2+ leukocytes, she has 479 white cells with many bacteria in her urine. Her blood and urine cultures have been sent. Prior cultures have been sensitive organisms. There is no history of any drug resistance. Chest x-ray is without any gross infiltrate. IN SUMMARY: This is a 73-year-old woman with sepsis, fever, vomiting, lactic acidosis, improved with intravenous fluids, empiric antibiotics. She got looks like vancomycin, meropenem in the emergency room. Would suggest we treat her with cefepime at this time for sepsis secondary to urinary tract infection in the setting of a PENICILLIN ALLERGY. No history of drug resistance. Will follow up cultures and make further recommendations. Fox [id number]
--- NOTE | 2018-06-20 13:12 | PN ---
Teaching Attending Note Name of Resident: Martin Schwartz ATTENDING PHYSICIAN STATEMENT I saw and evaluated the patient. I reviewed the resident's note and discussed the case with the resident. I agree with the resident's findings and plan as documented. SUBJECTIVE: Pt seen and examined in the ER. Briefly, 73yo female with h/o HTN, DM, CHF, dementia who was sent from the snf for vomiting and chills. Urinalysis suggestive of a UTI. Initially hypotensive but now responding to IVF resuscitation. Bloodwork with lactic acidosis and acute renal failure. Unable to obtain further history from patient. OBJECTIVE: Vital Signs Period Temp Pulse Resp BP Sys/Enamorado Pulse Ox Last 24 Hr 98.0 F-102.7 F 74-105 14-18 79-126/38-102 89-97 Intake & Output 06/17/18 06/18/18 06/19/18 06/20/18 23:59 23:59 23:59 23:59 Output Total 250 Balance -250 Weight 63.503 kg Gen: lethargic but arousable Heart: RRR Lung: decreased breath sounds at the bases Abd: soft, nontender Ext: no edema CBC, BMP 06/20/18 03:36 06/20/18 03:36 Active Medications Acetaminophen (Tylenol -) 650 mg PO Q6H PRN PRN Reason: PAIN Bacitracin (Bacitracin -) 1 applic TP BID [facility] Last Admin: 06/20/18 09:32 Dose: 1 applic Heparin Sodium (Porcine) (Heparin -) 5,000 unit SQ TID [facility] Last Admin: 06/20/18 06:45 Dose: 5,000 unit Azithromycin 500 mg/ Dextrose 250 mls @ 250 mls/hr IVPB DAILY [facility] Last Admin: 06/20/18 09:32 Dose: Not Given Sodium Chloride (Normal Saline -) 1,000 mls @ 100 mls/hr IV ASDIR [facility] Last Admin: 06/20/18 06:40 Dose: 100 mls/hr Cefepime HCl (Maxipime 1 Gm Premix Ivpb) 1 gm in 50 mls @ 100 mls/hr IVPB BID@ 0700,1900 [facility]; Protocol Insulin Aspart (Novolog Vial Sliding Scale -) 1 vial SQ ACHS [facility]; Protocol Last Admin: 06/20/18 11:19 Dose: 4 unit Levothyroxine Sodium (Synthroid -) 100 mcg PO DAILY@0700 [facility] Last Admin: 06/20/18 07:56 Dose: Not Given ASSESSMENT AND PLAN: UTI Severe Sepsis Acute Kidney Injury Lactic Acidosis HTN DM LV Diastolic Dysfunction Dementia - broad spectrum antibiotics - IVF resuscitation - f/u cultures - trend lactate - monitor urine output, creatinine - O2 to keep SpO2 >90% - aspiration precautions - DVT prophylaxis - health care proxy contacted who confirmed DNR/DNI, no aggressive measures including central line and pressors - can monitor on floor, please call back if further questions or change in clinical condition Thank you for this consult Christ Flood MD -
--- NOTE | 2018-06-20 14:56 | PN ---
Teaching Attending Note Name of Resident: Lucien Gonzáles ATTENDING PHYSICIAN STATEMENT I saw and evaluated the patient. I reviewed the resident's note and discussed the case with the resident. I agree with the resident's findings and plan as documented. pt seen at 0900 SUBJECTIVE:resting comfortable OBJECTIVE: Last Vital Signs Temp Pulse Resp BP Pulse Ox 98.3 F 74 14 91/45 97 06/20/18 13:32 06/20/18 13:32 06/20/18 13:32 06/20/18 13:32 06/20/18 13:32 General mildly tachypnic. alert, responds yes to some questions. does not follow simple commands CV S1 S2 RRR no murmur/ru/gallop Lungs coarse rhonchi diffusely Abdomen soft +suprapubic tenderness Extremities no pedal edema, warm. good capillary refill ASSESSMENT AND PLAN: 73yo F wtih PMH dysphagia, severe, dementia, DM, Hypothyroid sent to the ER from [facility] for vomiting and hypoxia 1. Severe sepsis due to UTI and suspected PNA- Tm 102.7. pt placed in trendelberg and received 1 L NS with minimal response at this time. will cont with IVF. Lactate remains elevated at 3. received vanco/meropenem/azithro. abx allergies noted. will cont to trend lactate. will need to talk with family about goals of care and consent for central line for pressors. MICU evaluation. f/u ID recommendations. f/u cx 2. Acute hypoxic respiratory distress- saturating 97% on 2L. was noted to be in 60% on RA at SNF. likley due to PNA and possible developing congestion. slightly tachypnic may be exacerbated by position. 3. DIOGO- due to sepsis. IVF., hold nephrotoxic agents. 4. severe dementia- currently responds yes to some questions does not answer with other responses. this appears improved from initial arrival. will need to determine baseline (last documented admission in 2013 and was noted to have dementia) 5. hypothyroid- check TSH. cont LT4 6. DVT ppx- hep sq 7. call placed to [facility] to obtain collateral information. awaiting return call. call also placed out to sister (HCP) for goals of care 8. Awaiting MICU eval The care of this patient involved high complexity decision making to prevent further life threatening deterioration of the patient's condition and/or to evaluate & treat vital organ system(s) failure or risk of failure. 40 mins
--- NOTE | 2018-06-20 15:00 | CONSULT ---
Consult Consult Specialty:: Nephrology Reason for Consultation:: DIOGO - History of Present Illness Chief Complaint: vomiting History of Present Illness: Pt is a 73 year old female with pmhx of dementia, dysphagia, hypothyroidism, recurrent UTI and DM who presents to the ER with vomiting. Pt is unable to give history. She had several episodes of vomiting. Pt was also found to be hypoxic. Pt complains of weakness and is not very interactive. She was found to have elevated creatinine and I was called to evaluate her. She denies history of CKD. Pt was also found to be hypotensive in the ER and required fluid boluses. - History Source History Provided By: Medical Record - Past Medical History MEDIA REPORTER: Yes: Dementia Cardio/Vascular: Yes: HTN, Other (DM) Musculoskeletal: Yes: Chronic low back pain Endocrine: Yes: Diabetes Mellitus, Hypothyroidism - Past Surgical History Past Surgical History: Yes: Cholecystectomy, Hysterectomy - Alcohol/Substance Use Hx Alcohol Use: No - Smoking History Smoking history: Never smoked Have you smoked in the past 12 months: No Aproximately how many cigarettes per day: 0 - Social History Usual Living Arrangement: Alone Home Medications - Allergies Allergies/Adverse Reactions: Allergies Allergy/AdvReac Type Severity Reaction Status Date / Time clindamycin Allergy Severe Rash Verified 06/20/18 03:17 Penicillins Allergy Mild Rash Verified 06/20/18 03:17 - Home Medications Home Medications: Ambulatory Orders Acetaminophen [Tylenol .Regular Strength -] 650 mg PO Q6H PRN 10/08/14 Bacitracin - [Bacitracin Topical Ointment -] 1 applic TP BID 10/08/14 Insulin Regular, Human [Humulin R -] 0 units SQ ACHS 10/08/14 Levothyroxine [Synthroid -] 75 mcg PO DAILY 10/08/14 Lisinopril [Prinivil -] 20 mg PO BID 10/08/14 Sitagliptin Phosphate [Januvia] 100 mg PO DAILY 10/08/14 metFORMIN XR [Glucophage Xr -] 750 mg PO BID 10/08/14 Aspirin 81 mg PO DAILY 06/20/18 Bupropion HCl 100 mg PO BID 06/20/18 Carvedilol [Coreg -] 12.5 mg PO BID 06/20/18 Cyanocobalamin (Vitamin B-12) [Vitamin B-12] 1,000 mcg PO DAILY 06/20/18 Docusate Sodium [Colace] 100 mg PO HS 06/20/18 Escitalopram Oxalate [Lexapro -] 10 mg PO BID 06/20/18 Glipizide [Glucotrol Xl] 2.5 mg PO DAILY 06/20/18 Glipizide [Glucotrol Xl] 5 mg PO DAILY 06/20/18 Family Disease History - Family Disease History Family Disease History: Heart Disease: Mother ([place] in her 80s), Other: Father ( pneumonia 85) Review of Systems - Review of Systems Constitutional: reports: Malaise Eyes: reports: No Symptoms HENT: reports: No Symptoms Neck: reports: No Symptoms Cardiovascular: reports: No Symptoms Respiratory: reports: SOB Gastrointestinal: reports: Vomiting Musculoskeletal: reports: Muscle Weakness Neurological: reports: Confusion, Dizziness Physical Exam Vital Signs: Vital Signs Temperature 98.3 F 06/20/18 13:32 Pulse Rate 74 06/20/18 13:32 Respiratory Rate 14 06/20/18 13:32 Blood Pressure 91/45 06/20/18 13:32 O2 Sat by Pulse Oximetry (%) 97 06/20/18 13:32 Constitutional: Yes: Calm HENT: Yes: Atraumatic Neck: Yes: Supple Cardiovascular: Yes: S1, S2 Respiratory: Yes: On Nasal O2 Gastrointestinal: Yes: Soft Renal/: Yes: Nascimento Present Musculoskeletal: Yes: Muscle Weakness Edema: No Integumentary: Yes: WNL Neurological: Yes: Lethargy Labs: CBC, BMP 06/20/18 03:36 06/20/18 03:36 Laboratory Tests 10/30/14 10/31/14 06/20/18 07:45 07:00 03:36 WBC 7.0 Hgb 14.9 Sodium Potassium BUN Creatinine 0.7 0.8 Lactic Acid Urine Protein Urine Blood 06/20/18 06/20/18 06/20/18 03:36 03:45 11:55 WBC Hgb Sodium 140 Potassium 3.9 BUN 37 H Creatinine 1.5 H Lactic Acid 3.1 H* Urine Protein 2+ H Urine Blood 3+ H 06/20/18 13:24 WBC Hgb Sodium Potassium BUN Creatinine Lactic Acid 3.0 H* Urine Protein Urine Blood Imaging - Results Chest X-ray: Report Reviewed Assessment/Plan Current Medications Generic Name Dose Route Start Last Admin Trade Name Freq PRN Reason Stop Dose Admin Acetaminophen 650 mg 06/20/18 06:00 Tylenol - PO Q6H PRN PAIN Bacitracin 1 applic 06/20/18 10:00 06/20/18 09:32 Bacitracin - TP 1 applic BID KUMAR Administration Heparin Sodium (Porcine) 5,000 unit 06/20/18 06:30 06/20/18 06:45 Heparin - SQ 5,000 unit TID KUMAR Administration Azithromycin 500 mg/ Dextrose 250 mls @ 250 mls/hr 06/20/18 06:01 06/20/18 09 :32 IVPB Not Given DAILY [facility] Sodium Chloride 1,000 mls @ 100 mls/hr 06/20/18 06:00 06/20/18 06:40 Normal Saline - IV 100 mls/hr ASDIR KUMRA Administration Cefepime HCl 1 gm in 50 mls @ 100 mls/hr 06/20/18 19:00 Maxipime 1 Gm Premix Ivpb IVPB BID@0700,1900 [facility] Protocol Insulin Aspart 1 vial 06/20/18 07:00 06/20/18 11:19 Novolog Vial Sliding Scale - SQ 4 unit ACHS KUMAR Administration Protocol Levothyroxine Sodium 100 mcg 06/20/18 07:00 06/20/18 07:56 Synthroid - PO Not Given DAILY@0700 [facility] Impression 1. DIOGO 2. sepsis 3. UTI 4. lactic acidosis 5. hypotension 6. dementia 7. hypothyroidism 8. DM Plan - check renal ultrasound - cont fluids - DIOGO likely from sepsis and prerenal disease from hypotension - cont abx - cont to trend complaint supervisor - maintain map above 65 - will follow Dr Hastings
--- NOTE | 2018-06-20 15:27 | EKG ---
Test Reason : Blood Pressure : / mmHG Vent. Rate : 103 BPM Atrial Rate : 103 BPM P-R Int : 140 ms QRS Dur : 076 ms QT Int : 368 ms P-R-T Axes : 073 -14 043 degrees QTc Int : 482 ms SINUS TACHYCARDIA LOW VOLTAGE QRS INFERIOR INFARCT (CITED ON OR BEFORE 21-AUG-2008) CANNOT RULE OUT ANTERIOR INFARCT (CITED ON OR BEFORE 21-AUG-2008) ABNORMAL ECG WHEN COMPARED WITH ECG OF 08-OCT-2014 07:43, NO SIGNIFICANT CHANGE WAS FOUND Confirmed by Sonia Del Rio ([id number]) on 06/20/2018 3:27:08 PM Referred By: Confirmed By:Sonia Del Rio
[2018-06-20] MEDS ORDERED: CEFEPIME HCL/D5W 1 GM/50 ML BAG IVPB SCH (19:00)
[2018-06-20] MEDS ORDERED: CHLORHEXIDINE GLUCONATE 4% CLEANSER FOR DECOLONIZATION TP SCH (22:00)
--- NOTE | 2018-06-21 11:48 | PN ---
Teaching Attending Note Name of Resident: Lucien Gonzáles ATTENDING PHYSICIAN STATEMENT I saw and evaluated the patient. I reviewed the resident's note and discussed the case with the resident. I agree with the resident's findings and plan as documented. SUBJECTIVE:resting comfortable OBJECTIVE: Last Vital Signs Temp Pulse Resp BP Pulse Ox 98.2 F 88 20 129/56 97 06/21/18 10:00 06/21/18 10:00 06/21/18 10:00 06/21/18 10:00 06/20/18 21:00 General alert answers yes to some questions CV S1 S2 RRR no murmur/ru/gallop Lungs decreased breath sounds R base no crackles or wheezing Abdomen soft NT/ND Extremities no pedal edema ASSESSMENT AND PLAN: 73yo F wtih PMH dysphagia, severe, dementia, DM, Hypothyroid sent to the ER from [facility] for vomiting and hypoxia 1. Severe sepsis due to UTI and GNR bacteremia- HCP sigend DNR/DNI comfort measures with no abx or IVF. all medications were stopped. jimenez maintained for comfort and morphine and ativan given as needed for comfort. plan for patient to return to [facility] on hospice measures. no more labs
[2018-06-21] MEDS ORDERED: MORPHINE SULFATE 2 MG/ML VIAL IVPUSH PRN (12:38)
[2018-06-21] MEDS ORDERED: LORazepam 2 MG/ML SDV VIAL IVPUSH PRN (12:39)
--- NOTE | 2018-06-21 13:20 | PN ---
Progress Note, Physician History of Present Illness: Pt seen and examined at bedside. She is more awake than she was yesterday. She is now on comfort care. - Current Medication List Current Medications: Active Medications Acetaminophen (Tylenol -) 650 mg PO Q6H PRN PRN Reason: PAIN Lorazepam (Ativan Injection -) 1 mg IVPUSH Q6H PRN PRN Reason: AGITATION Morphine Sulfate (Morphine Sulfate) 2 mg IVPUSH Q6H PRN PRN Reason: PAIN LEVEL 6-10 - Objective Vital Signs: Vital Signs Temperature 98.2 F 06/21/18 10:00 Pulse Rate 88 06/21/18 10:00 Respiratory Rate 20 06/21/18 10:00 Blood Pressure 129/56 06/21/18 10:00 O2 Sat by Pulse Oximetry (%) 97 06/20/18 21:00 Constitutional: Yes: Calm Eyes: Yes: Conjunctiva Clear Cardiovascular: Yes: S1, S2 Respiratory: Yes: CTA Bilaterally Gastrointestinal: Yes: Soft Genitourinary: Yes: Incontinence Musculoskeletal: Yes: Muscle Weakness Edema: No Neurological: Yes: Confusion Labs: CBC, BMP 06/20/18 03:36 06/20/18 03:36 INR, PTT INR 1.27 (0.83-1.09) H 06/20/18 03:36 Assessment/Plan Current Medications Generic Name Dose Route Start Last Admin Trade Name Freq PRN Reason Stop Dose Admin Acetaminophen 650 mg 06/20/18 06:00 Tylenol - PO Q6H PRN PAIN Lorazepam 1 mg 06/21/18 12:39 Ativan Injection - IVPUSH Q6H PRN AGITATION Morphine Sulfate 2 mg 06/21/18 12:38 Morphine Sulfate IVPUSH Q6H PRN PAIN LEVEL 6-10 Impression 1. DIOGO 2. sepsis 3. UTI 4. lactic acidosis 5. hypotension 6. dementia 7. hypothyroidism 8. DM Plan - no new labs - family placed pt on comfort care/hospice - fluids were stopped - pt clinically however appears improved - will follow PRN
--- NOTE | 2018-06-21 13:52 | DS ---
Physical Exam: SUBJECTIVE: Patient seen and examined at bedside. resting comfortably. no acute events overnight. yesterday DNR/DNI comfort care measures only OBJECTIVE: Vital Signs Period Temp Pulse Resp BP Sys/[place] Pulse Ox Last 24 Hr 98.2 F-98.9 F 76-88 18-20 97-152/52-75 97-97 PHYSICAL EXAM GENERAL: Awake, mostly nonverbal but responsive to stimuli , not following commands, on 2L o2 NC HEAD: Normal with no signs of trauma. EYES: PERRL sclera anicteric, conjunctiva clear. No lid lag. EARS, NOSE, THROAT: nares patent, oropharynx clear without exudates. MMM. NECK: Normal range of motion, supple without lymphadenopathy, JVD, or masses. LUNGS: +rhonchi b/l R >L , no accessory muscle use HEART: RRR, normal S1 and S2 without murmur, rub or gallop. ABDOMEN: Soft, nontender, not distended, normoactive bowel sounds. MUSCULOSKELETAL: Normal range of motion at all joints. UPPER EXTREMITIES: 2+ pulses, warm, well-perfused. No cyanosis. No clubbing. No peripheral edema. LOWER EXTREMITIES: 2+ pulses, warm, well-perfused. No calf tenderness. No peripheral edema. SKIN: Warm, dry, normal turgor, no rashes or lesions. LABS Laboratory Results - last 24 hr 06/20/18 06/20/18 13:24 16:15 Lactic Acid 3.0 H* 1.9 HOSPITAL COURSE: Date of Admission:06/20/18 Date of Discharge: 06/21/18 Patient is a 73 year old female with past medical history of dysphagia, HTN, DM , Dementia, Hypothyroidism, and recurrent UTIs was brought in from from [facility] by EMS due to vomiting and hypoxia Admitted for Severe sepsis 2/2 UTI and GNR bacteremia. Pt was febrile, tachy and hypotensive w/ elevated lactic acid. UA pos for UTI. Pt previous urine cx showed E.coli resistant to Levaquin. ID consulted and Pt was initially tx w/ fluids, O2 NC, and vanco/meropenem/Azithromycin. Pt almost required admission to ICU for BPs 80/40s MAP 55-59 w/ trendelenberg and w/ 1 L NS with minimal response. Pt however responded well to abx and fluid tx. Family/HCP was contacted along w/ palliative care consult. HCP signed DNR/DNI comfort measures with no abx, pressors, or IVF. all medications and labs were stopped. jimenez maintained for comfort and morphine and ativan given as needed for comfort. plan for patient to return to [facility] on hospice measures. Pt is stable and ready for discharge. Minutes to complete discharge: 35 Discharge Summary Reason For Visit: UTI/SEPSIS Current Active Problems Penicillin allergy (Acute) Sepsis (Acute) UTI (lower urinary tract infection) (Acute) Condition: Guarded - Instructions Diet, Activity, Other Instructions: You were admitted for a urinary tract infection and a blood infection. We initially treated you with fluids and antibiotics which improved your symptoms. You and your health care proxy have decided to elect for DNR/DNI and comfort measures with no antibiotics or fluids. We have stopped all labs and interventions. We will continue however measures for comfort including pain medications and jimenez catheter. Disposition: [facility] - Home Medications Comprehensive Discharge Medication List: Ambulatory Orders Acetaminophen [Tylenol .Regular Strength -] 650 mg PO Q6H PRN 10/08/14 Lorazepam Injection [Ativan Injection -] 1 mg IVPUSH Q6H PRN 7 Days disp.syrin MDD 4 06/21/18 Morphine Injection - [Morphine Injection 2 mg/1 mL -] 2 mg IVPUSH Q6H PRN disp.syrin MDD 8 06/21/18 This patient is new to me today: Yes Date on this admission: 06/21/18 Emergency Visit: Yes ED Registration Date: 06/20/18 Care time: The patient presented to the Emergency Department on the above date and was hospitalized for further evaluation of their emergent condition. Critical Care patient: No - Discharge Referral Referred to [facility] Med P.[facility] No
[2018-06-21 20:55] VITALS: BP 130/88; PULSE 88; TEMP 98.8
== END 2018-06-21 19:49 | DRG 871 ==
LOC: JER 03:05 → JERBED 04:55 → UNDOADMIN 05:09 → JERBED 05:09 → J5S 14:21
PROVIDERS: ADMIT Internal Medicine; ATTEND Internal Medicine
DX: A41.89 Other specified sepsis (principal); J18.9 Pneumonia, unspecified organism; N39.0 Urinary tract infection, site not specified; N17.9 Acute kidney failure, unspecified; E87.2 Acidosis; E03.9 Hypothyroidism, unspecified; R06.03 Acute respiratory distress; E11.9 Type 2 diabetes mellitus without complications; R13.10 Dysphagia, unspecified; G30.9 Alzheimer's disease, unspecified; F02.80 Dementia in other diseases classified elsewhere, unspecified severity, without behavioral disturbance, psychotic disturbance, mood disturbance, and anxiety; M54.5 Low back pain; R09.02 Hypoxemia; I11.0 Hypertensive heart disease with heart failure; R65.20 Severe sepsis without septic shock; Z88.0 Allergy status to penicillin; Z66 Do not resuscitate
CPT/HCPCS: 36415; 71045-TC-FY; 80053; 81003; 81015; 82803; 82962; 83605; 83690; 84443; 84484; 85025; 85610; 85730; 87040; 87086; 87186; 93005; 93010; 99285-25; J0131; J1644; J7030